=== PATIENT | female | born 2000 | race Caucasian/White ===

== ENCOUNTER 2022-07-03 16:36 | Observation (INO) | payer BC ==
[2022-07-03 17:18] LABS: #Lymphocytes 2.7 thou/uL (1.20-3.40); #Monocytes 0.4 thou/uL (0.11-0.59); #Neutrophils 3.4 thou/uL (1.40-6.50); %Basophils 0.7 % (0.0-1.0); %Eosinophils 0.3 % (0.0-10.0); %Lymphocytes 40.9 % (21.0-51.0); %Monocytes 6.1 % (0.0-10.0); Hemoglobin 14.4 g/dL (12.0-16.0); Mean Corpuscular HGB CONC 33.9 g/dL (32.0-36.0); Mean Corpuscular Volume 94.4 fL (78.0-98.0); Mean Platelet Volume 7.3 fL (7.4-10.4); Platelet Count 298 thou/uL (130-400); RBC Distribution Width 11.4 % (11.5-14.5); White Blood Cell (WBC) Count 6.5 thou/uL (4.8-10.8)
[2022-07-03 17:43] LABS: ALT (SGPT) Less than 7 U/L (8-55); AST (SGOT) 13 U/L (5-34); Albumin 4.1 g/dL (3.5-5.0); Alkaline Phosphatase 53 U/L (40-110); Anion Gap 15 mmol/L (10-20); BUN (Urea Nitrogen) 7 mg/dL (7.0-18.7); Bilirubin, Total 2.3 mg/dL (0.2-1.2); Calc. Creatinine Clearance 0 mL/min (70-130); Calcium 9.4 mg/dL (7.8-10.44); Carbon Dioxide 18 mmol/L (22-29); Chloride 108 mmol/L (98-107); Estimated GFR 109; Globulin 2.8 g/dL (2.4-3.5); Glucose 83 mg/dL (70-105); Potassium 3.8 mmol/L (3.5-5.1); Protein, Total 6.9 g/dL (6.0-8.3); Sodium 137 mmol/L (136-145)
[2022-07-03 19:38] LABS: Bilirubin Negative (Negative); Blood, Urine Negative (Negative); Clarity Clear (Clear); Glucose, Urine (Dipstick) Normal (Negative); Ketone, Urine 60 mg/dL (Negative); Leukocyte Negative Leu/uL (Negative); Nitrite Negative (Negative); Protein, Urine (Dipstick) Negative (Neg-Trace); Specific Gravity, Urine 1.016 (1.002-1.036); Urobilinogen Normal mg/dL (Less than 2); pH, Urine 6.5 (5.0-9.0)
[2022-07-03 19:46] LABS: Pregnancy Test - Urine (BHCG) Negative (Negative); Pregu Control Background? CLEAR/WHITE (CLR/WHITE); Pregu Control Bar Appear? YES (CONTROL BAR); Specific Gravity 1.016 (1.002-1.036)
[2022-07-03 19:47] LABS: Amphetamine Detected (NotDetected); Barbiturates Screen Not Detected (NotDetected); Benzodiazepine Screen Not Detected (NotDetected); Cocaine Metabolite Screen Not Detected (NotDetected); Methadone Not Detected (NotDetected); Methamphetamine Not Detected (NotDetected); Opiate Screen Not Detected (NotDetected); Oxycodone Screen Not Detected (NotDetected); Phencyclidine (PCP) Not Detected (NotDetected); THC/Cannabinoid Screen Not Detected (NotDetected); Tricyclic Screen Not Detected (NotDetected)
[2022-07-03] MEDS ORDERED: Acetaminophen 500 MG TAB ONE (20:50)
[2022-07-03] MEDS ORDERED: Ketorolac Tromethamine 30 MG/ML VIAL ONE (21:52)
[2022-07-03] MEDS ORDERED: Ondansetron PF 4 MG/2 ML Vial IVP PRN (22:30)
[2022-07-03] MEDS ORDERED: Electrolyte Replacement Protocol 1 EACH FS PRN (22:30)
[2022-07-03] MEDS ORDERED: Acetaminophen 325 MG TAB PO PRN (22:30)
[2022-07-03] MEDS ORDERED: Ondansetron ODT 4 MG TAB PO PRN (22:30)
[2022-07-03] MEDS ORDERED: Sodium Chloride 0.9% 1,000 ML IV SCH (22:30)
[2022-07-03] MEDS ORDERED: Ketorolac Tromethamine 30 MG/ML VIAL IVP PRN (22:34)
[2022-07-03] MEDS ORDERED: hydrALAZINE 20 MG/ML VIAL SLOW IVP PRN (22:37)
[2022-07-03] MEDS ORDERED: Pantoprazole 40 MG VIAL IVP SCH (23:00)
[2022-07-03 23:30] VITALS: BMI 39.1
[2022-07-04] MEDS ORDERED: traMADol HCl 50 MG TAB PO SCH ×2 (01:15→20:00)
[2022-07-04 01:56] LABS: Troponin I Less than 0.010 ng/mL (< 0.028)
[2022-07-04 05:16] LABS: ALT (SGPT) Less than 7 U/L (8-55); AST (SGOT) 9 U/L (5-34); Albumin 3.4 g/dL (3.5-5.0); Alkaline Phosphatase 43 U/L (40-110); Anion Gap 10 mmol/L (10-20); BUN (Urea Nitrogen) 11 mg/dL (7.0-18.7); Bilirubin, Total 2.2 mg/dL (0.2-1.2); Calc. Creatinine Clearance 153 mL/min (70-130); Calcium 8.2 mg/dL (7.8-10.44); Carbon Dioxide 23 mmol/L (22-29); Chloride 110 mmol/L (98-107); Estimated GFR 99; Globulin 2.2 g/dL (2.4-3.5); Glucose 94 mg/dL (70-105); Potassium 3.7 mmol/L (3.5-5.1); Protein, Total 5.6 g/dL (6.0-8.3); Sodium 139 mmol/L (136-145)
[2022-07-04 05:21] LABS: Troponin I Less than 0.010 ng/mL (< 0.028)
[2022-07-04 06:07] LABS: Hemoglobin 13.3 g/dL (12.0-16.0); Lymphocytes 57 % (21-51); MDiff Complete? YES; Mean Corpuscular HGB CONC 35.8 g/dL (32.0-36.0); Mean Platelet Volume 7.3 fL (7.4-10.4); Monocytes 7 % (0-10); Neutrophil 36 % (42-75); Platelet Count 241 thou/uL (130-400); RBC Distribution Width 11.3 % (11.5-14.5); Red Blood Cell (RBC) Count 3.92 mill/uL (4.20-5.40); White Blood Cell (WBC) Count 6.1 thou/uL (4.8-10.8)
[2022-07-04] MEDS ORDERED: Magnesium 2 GM/50 ML(in water) 2 GM in Premix Bag 1 BAG IVPB SCH (08:00)
[2022-07-04] MEDS: Metoprolol Tartrate 25 MG TAB PO SCH ×2 (08:36→20:30)
[2022-07-04] MEDS ORDERED: Metoprolol Tartrate 25 MG TAB PO SCH (09:00)
[2022-07-04] MEDS ORDERED: Iopamidol 370 76% 100 ML VIAL ONE (09:00)
[2022-07-04] MEDS ORDERED: Potassium Chloride 20 MEQ TAB PO SCH (12:15)
[2022-07-04] MEDS: Lorazepam 1 MG TAB PO PRN ×2 (14:06→21:17)
[2022-07-04] MEDS ORDERED: Ibuprofen 600 MG TAB PO PRN (17:13)
[2022-07-04] MEDS ORDERED: busPIRone HCl 5 MG TAB PO SCH (21:00)
[2022-07-04] MEDS ORDERED: Venlafaxine HCl XR 150 MG CAP PO SCH (21:00)
[2022-07-04] MEDS ORDERED: lamoTRIgine 25 MG TAB PO SCH (21:00)
[2022-07-04] MEDS ORDERED: Enoxaparin Sodium 40 MG/0.4 ML SYRINGE SC SCH (21:00)
[2022-07-04] MEDS ORDERED: Pantoprazole 40 MG VIAL IVP SCH (21:00)
[2022-07-05 05:37] LABS: HBCM Index 0.07 S/CO (0-0.79); HBSAg Index 0.38 S/CO (0-0.99); Hep A IgM AB Non-Reactive (NonReactive); Hep A IgM S/CO 0.26 S/CO (0-0.79); Hep B Surf Ag Non-Reactive S/CO (NonReactive); Hep C IgG Ab Non-Reactive (NonReactive); Hep C Index 0.08 S/CO (0-0.79); Hepatitis B Core IgM Abs Non-Reactive (NonReactive)
[2022-07-05 08:13] LABS: Mean Corpuscular HGB CONC 34.6 g/dL (32.0-36.0); Mean Corpuscular Hemoglobin 33.3 pg (27.0-31.0); Mean Corpuscular Volume 96.2 fL (78.0-98.0); Mean Platelet Volume 8.1 fL (7.4-10.4); Platelet Count 266 thou/uL (130-400); RBC Distribution Width 11.4 % (11.5-14.5); White Blood Cell (WBC) Count 5.5 thou/uL (4.8-10.8)
[2022-07-05 08:40] LABS: Anion Gap 13 mmol/L (10-20); BUN (Urea Nitrogen) 8 mg/dL (7.0-18.7); Calc. Creatinine Clearance 156 mL/min (70-130); Calcium 8.6 mg/dL (7.8-10.44); Carbon Dioxide 19 mmol/L (22-29); Chloride 110 mmol/L (98-107); Estimated GFR 102; Glucose 91 mg/dL (70-105); Magnesium 2.2 mg/dL (1.6-2.6); Potassium 3.8 mmol/L (3.5-5.1); Sodium 138 mmol/L (136-145)
[2022-07-05 09:11] LABS: Band 1 % (5-11); Lymphocytes 65 % (21-51); MDiff Complete? YES; Monocytes 8 % (0-10); Neutrophil 26 % (42-75); Platelet Morphology Comment Appears Adequate; RBC Morphology Normal
[2022-07-05] MEDS: Metoprolol Tartrate 25 MG TAB PO SCH (09:54)
[2022-07-05 12:08] VITALS: BP 108/74; TEMP 98.5
== END 2022-07-05 15:14 | disposition home or self-care (01) ==
LOC: ERS 16:36 → 2NO 21:17
PROVIDERS: ADMIT Family Medicine; ATTEND Family Medicine
DX: R55 Syncope and collapse (principal); I47.1 Supraventricular tachycardia; Q24.4 Congenital subaortic stenosis; R20.2 Paresthesia of skin; R51.9 Headache, unspecified; G93.5 Compression of brain; R53.1 Weakness; K76.0 Fatty (change of) liver, not elsewhere classified; R41.82 Altered mental status, unspecified; M48.02 Spinal stenosis, cervical region; J35.1 Hypertrophy of tonsils; Z79.899 Other long term (current) drug therapy; Z20.822 Contact with and (suspected) exposure to COVID-19
CPT/HCPCS: 36415; 70450; 70551; 71045; 71275; 72141; 74174; 80048; 80053; 80074; 80306; 81003; 81025; 83605; 83735; 83880; 84146; 84443; 84484; 85025; 93005; 93010; 93306; 95712; 95819; 95957; 96372; 96374; 96375; 96376; C9113; G0378; J1650; J1885; J3475; J7050; Q9967; U0003; U0005